=== PATIENT | female | born 1985 | race Caucasian/White ===

== ENCOUNTER 2016-09-21 11:20 | Emergency (ER) | payer MEDICAID, OTHER ==
[2016-09-21 11:49] VITALS: BP 137/73
--- NOTE | 2016-09-21 13:00 | UC ---
Respiratory Complaint HPI - HPI Summary HPI Summary: cold symptoms for 3 months. Stuffy nose, dry cough, sore throat. Does have dry air in house. Daughter in daycare, has been ill recently as well. No history of asthma. Able to eat and drink. No vomiting or diarrhea - History of Current Complaint Chief Complaint: UCRespiratory Stated Complaint: SORE THROAT Time Seen by Provider: 09/21/16 12:40 Hx Obtained From: Patient Hx Last Menstrual Period: 08/20/16 ?: No Onset/Duration: Gradual Onset, Lasting Weeks Timing: Constant Severity Initially: Mild Severity Currently: Mild Character: Cough: Nonproductive Aggravating Factors: Exertion Alleviating Factors: OTC Meds Associated Signs And Symptoms: Positive: URI, Nasal Congestion, Hoarseness, Sinus Discomfort. Negative: Dyspnea, Fever, Chills, Pleuritic Chest Pain, Wheezing, Hemoptysis, Dizziness, Calf Pain, Calf Swelling, Edema - Risk Factors Pulmonary Embolism Risk Factors: Negative Cardiac Risk Factors: Negative Pseudomonas Risk Factors: Negative Tuberculosis Risk Factors: Negative - Allergies/Home Medications Allergies/Adverse Reactions: Allergies Allergy/AdvReac Type Severity Reaction Status Date / Time Bee Venom Allergy Hives Verified 11/03/15 17:49 Home Medications: Home Medications buPROPion SR TAB* [Wellbutrin SR TAB*] 150 mg PO DAILY 09/21/16 [History Confirmed 09/21/16] PMH/Surg Hx/FS Hx/Imm Hx Previously Healthy: Yes Endocrine History Of: Denies: Diabetes Cardiovascular History Of: Denies: Hypertension, Congestive Heart Failure Respiratory History Of: Denies: Asthma GI/ History Of: Denies: Renal Disease - Surgical History Surgical History: Yes Surgery Procedure, Year, and Place: 2013 - Family History Known Family History: Positive: Hypertension - Social History Occupation: Employed Full-time Lives: With Family Alcohol Use: None Substance Use Type: None Smoking Status (MU): Never Smoked Tobacco Amount Used/How Often: social Length of Time of Smoking/Using Tobacco: 10 years Have You Smoked in the Last Year: No When Did the Patient Quit Smoking/Using Tobacco: 2012 Review of Systems Constitutional: Chills, Fatigue Skin: Negative Eyes: Negative ENT: Sore Throat, Nasal Discharge Respiratory: Cough Cardiovascular: Negative Gastrointestinal: Negative Genitourinary: Negative Motor: Negative Neurovascular: Negative Musculoskeletal: Negative Neurological: Negative Psychological: Negative All Other Systems Reviewed And Are Negative: Yes Physical Exam Triage Information Reviewed: Yes Appearance: Well-Appearing, No Pain Distress, Well-Nourished, Obese Vital Signs: Initial Vital Signs Temp 98.6 F 09/21/16 11:46 Pulse 77 09/21/16 11:46 Resp 16 09/21/16 11:46 BP 137/73 09/21/16 11:46 Pulse Ox 100 09/21/16 11:46 Vital Signs Reviewed: Yes Eye Exam: Normal ENT Exam: Normal ENT: Positive: Pharyngeal erythema, Nasal congestion, TMs normal. Negative: Tonsillar swelling, Tonsillar exudate, Trismus, Muffled/hoarse voice Neck exam: Normal Respiratory Exam: Normal Respiratory: Positive: Lungs clear, Normal breath sounds, No respiratory distress, No accessory muscle use Cardiovascular Exam: Normal Musculoskeletal Exam: Normal Neurological Exam: Normal Psychological Exam: Normal Skin Exam: Normal UC Diagnostic Evaluation - Laboratory O2 Sat by Pulse Oximetry: 100 Diagnostic Studies Comment: Strep neg Respiratory Course/Dx - Differential Dx/Diagnosis Differential Diagnosis/HQI/PQRI: Bronchitis, Lower Resp Infection, Sinusitis Provider Diagnoses: URI Discharge - Discharge Plan Condition: Stable Disposition: HOME Prescriptions: Benzonatate CAP* [Tessalon CAP*] 100 mg PO TID PRN #20 cap PRN Reason: Cough Pseudoephedrine HCl [Sudafed 12 Hour] 120 mg PO BID PRN #20 tab PRN Reason: Congestion Patient Education Materials: Upper Respiratory Infection (ED) Referrals: Vannessa Gracia [Primary Care Provider] -
== END 2016-09-21 13:40 | disposition home or self-care (01) ==
LOC: UCEAST 11:20
DX: J06.9 Acute upper respiratory infection, unspecified (principal)
CPT/HCPCS: 87651; 99211; G0463